=== PATIENT | female | born 1975 | race Caucasian/White ===

== ENCOUNTER → 2019-10-23 14:12 | Outpatient (CLI) | payer BC, SELFPAY ==
--- NOTE | ~2019-10-23 | XR_ITS ---
XR pelvis 1-2V DATE: 10/23/2019 14:52 INDICATION: Chronic midline low back pain, bilateral sciatica TECHNIQUE: AP pelvis COMPARISON: None FINDINGS: No pelvic fracture. The pubic symphysis and sacroiliac joints are intact. Hip joint spaces are symmetric and relatively preserved. IMPRESSION: No significant abnormality Reviewed, dictated and finalized at location A. IMPRESSION: No significant abnormality
--- NOTE | ~2019-10-23 | XR_ITS ---
. XR lumbar spine 2-3V 10/23/2019 14:52 Indication: Chronic low back pain Procedure: 3 views lumbar spine Comparison: No prior studies for comparison. Findings: Vertebral body heights are maintained. Normal lumbar lordosis. No evidence for acute fractu re, subluxation or dislocation. Mild disc narrowing at L5-S1. Mild levocurvature. Sacral foramen are symmetric. Impression: 1: Mild lumbar spondylosis. Reviewed, dictated and finalized at location B. Impression: 1: Mild lumbar spondylosis.
== END ==
PROVIDERS: PCP Family Medicine; Visit Provider Nurse Practitioner Family
DX: M54.41 Lumbago with sciatica, right side (principal); M54.42 Lumbago with sciatica, left side; G89.29 Other chronic pain; M47.896 Other spondylosis, lumbar region
CPT/HCPCS: 72100; 72170